=== PATIENT | female | born 1945 | race Caucasian/White ===

== ENCOUNTER 2016-07-05 05:21 | Inpatient (IN) | payer OTHER ==
[2016-06-20 08:42] LABS: HEMATOCRIT 39.9 % (37.0-47.0); HEMOGLOBIN 13.4 gm/dL (12.0-15.0); MCH 31.8 pg (26.0-34.0); MCHC 33.6 g/dL (28.0-37.0); MCV 94.6 fL (80.0-100.0); RBC 4.22 mil/uL (4.20-5.00); RDW 13.4 % (10.5-14.5); WBC 8.4 thou/uL (4.0-11.0)
[2016-06-20 08:48] LABS: URINE BILIRUBIN NEGATIVE (Negative); URINE BLOOD 1+ (Negative); URINE COLOR YELLOW; URINE GLUCOSE-RANDOM* NEGATIVE (Negative); URINE KETONES TRACE (Negative); URINE LEUKOCYTES-REFLEX NEGATIVE (Negative); URINE PROTEIN (DIPSTICK) NEGATIVE (Negative); URINE SPECIFIC GRAVITY >= 1.030 (1.003-1.035); URINE UROBILINOGEN 0.2 E.U./dl (0.2-1.0)
[2016-06-20 08:51] LABS: ALBUMIN 3.4 g/dL (3.4-5.0); CALCIUM 10.4 mg/dL (8.5-10.1); CREATININE 0.8 mg/dL (0.6-1.0); POTASSIUM 4.2 mmol/L (3.5-5.1)
[2016-06-20 09:18] LABS: CASTS None Seen /LPF (None Seen); SQUAMOUS 4-10 Moderate /LPF (0-3)
[2016-06-20 09:19] LABS: CALCIUM OXALATE 4-10 Moderate /LPF (None Seen); URINE RBC 0-2 Rare /HPF (0-2); URINE WBC-REFLEX 0-5 Rare /HPF (0-5)
[2016-07-05] VITALS (7 sets, daily range): BP systolic 113–149; BP diastolic 66–83
[~2016-07-05] VITALS: Ht 160 cm; Wt 93.3 kg
--- NOTE | ~2016-07-05 | H ---
[facility] [address] [address] HISTORY AND PHYSICAL Name: TAMI BETANCURCY CHERIE Room #: 543-P ADM IN M.R.#: [id number] Admission: 07/05/16 Attend Phys: Henok Zavala MD Discharge: Date of : 49 Report #: [id number] THIS REPORT FOR: //name// For History and Physical, please see office documentation/handwritten note in the patient's medical record. By: 1150 Henok Zavala MD /
--- NOTE | ~2016-07-05 | O ---
[facility] [place] [address] [place] [address] OPERATIVE REPORT Name: VIOLA BETANCUR Room #: 543-P ADM IN M.R.#: [id number] Admission: 07/05/16 Attend Phys: Henok Zavala MD Discharge: Date of : 49 Report #: [id number] THIS REPORT FOR: //name// CC: Aidan Rabago Terrymarti Zavala DATE OF SERVICE: 07/05/2016 PREOPERATIVE DIAGNOSES: 1. Right knee degenerative joint disease, severe. 2. Obesity, body mass index of 33.18. POSTOPERATIVE DIAGNOSES: 1. Right knee degenerative joint disease, severe. 2. Obesity, body mass index of 33.18. PROCEDURE: Right total knee arthroplasty. SURGEON: Henok Zavala MD. ZONE MAINTENANCE TECHNICIAN: Adrian Tucker, nurse practitioner. INDICATIONS FOR ZONE MAINTENANCE TECHNICIAN: During the course of operation, extensive manipulation, retraction, and limb positioning was required. This was afforded to me by my ambulance assistant. ANESTHETIC: General. INDICATIONS: See hospital H and P. IMPLANTS UTILIZED: We used a DePuy PFC knee system. We used a cruciate retaining femoral component size 4 narrow. We used a size 3 tibial tray with a 12.5 mm insert and a 38 mm oval dome patella. DESCRIPTION OF PROCEDURE: After adequate general anesthesia had been obtained, the patient's right lower extremity was prepped and draped in the usual meticulous sterile fashion. Limb was exsanguinated with gravity. Tourniquet was inflated to 350 torr. An anterior midline incision was made. We did incorporate a previous incision distally in her knee, which resulted in a slight medial translation of the incision from typical midline incision. Subq was divided sharply. Hemostasis was obtained with electrocautery. Medial parapatellar incision was made. Infrapatellar fat pad excised. Medial release performed. A drill was used to drill the distal femur. This hole was enlarged, irrigated, suctioned, and the intramedullary guide placed the full length of the [facility] [address] [place] [address] OPERATIVE REPORT Name: GYPSYVIOLA [facility] Room #: 543-P ADM IN M.R.#: [id number] Admission: 07/05/16 Attend Phys: Henok Zavala MD Discharge: Date of : 49 Report #: [id number] femur. Distal femoral cutting guide pinned to appropriate height. We did set the valgus angle at 7, which matched the patient's anatomy. We then made the distal femoral cut. The measurement device determined size 4 as appropriate size for this patient, 4 narrow was seemed to be the appropriate one to fit her anatomy. We marked the distal femur and impacted the cutting guide into place, and the anterior, posterior and chamfer cuts were made. Rongeur was used to remove additional osteophytes. At this time, the ACL was transected, tibia translated anteriorly and menisci were excised. Drill was used to drill the central portion of the tibia. This hole was enlarged, irrigated, and suctioned and the intramedullary guide placed the full length of the tibia. Proximal tibial cutting guide placed at appropriate height. Proximal tibial cut was made, 3 tray gave us the best coverage on the tibia. We placed the trial components in position. With 12.5 spacer, she had the best flexion and extension gap. Patella tracked normally. At this time, the patella was measured, cutting guide clamped into place. Patellar cut was made. The 38 template gave us the best coverage. Pedicles were drilled, trial components were put in position. It tracked normally. At this time, the knee was taken through several cycles of flexion and extension. Tibial tray rotation was marked, distal femur drilled. Trial components were removed. The knee was irrigated with both pulse lavage and antibiotic irrigation. Bone plugs were fashioned and then placed in the proximal tibia and distal femur. The cement was vacuum mixed, and when it reached the appropriate consistency, the knee was thoroughly dried. The tibial tray was cemented into place and excess cement was removed. The spacer was impacted in to place. The femur impacted in to place, and the knee was taken out to 30 degrees of flexion with uniform compression placed across the components. Patellar button was then cemented into place, and again excess cement was removed. The drains were placed superolaterally both deep and superficial. The retinacular layer closed with combination of an interrupted [id number]-xe-awwgs #1 Vicryl, as well as running #1 Tevdek. SubQ was closed with 2-0 Monocryl in layers due to the patient's size, which took additional time. Skin closed with josette. Sterile compressive dressing applied. Tourniquet was then deflated. <ELECTRONICALLY SIGNED> By: Henok Zavala MD 07/05/16 1131 0836 1031 Henok Zavala MD /nt
[~2016-07-05 05:21] MED LIST: ALTACE5 M1 PO; ALTACE5 MG PO; ASPIRIN325 PO; AUGMENTIN 875875 MG PO; CIPROFLOXACIN500 M1 PO; CIPROFLOXACIN500 M3; DOXYCYCLINE 10100 M1 PO; FISH OIL 1,001000 M2 PO; FLAGYL500 MG PO; HYOSCYAMINE0.125 MG PO; LANSOPRAZOLE30 MG PO; LEVOTHYROXINE 0.1 MG PO; LIPITOR10 MG PO; NITROGLYCERIN0.4 MG SL; NORCO 5-325 TA1 EACH PO; OCUVITE TABLET1 EAC1 PO; SYNTHROID112 MCG PO; TRAMADOL 50 MG50 MG PO; VITAMIN D1000 UNI1 PO; WELLBUTRIN SR150 MG PO
[2016-07-06 00:49] VITALS: BP 114/69
[2016-07-06 04:30] VITALS: BP 122/62
[2016-07-06 07:07] LABS: HEMATOCRIT 32.9 % (37.0-47.0); MCH 31.4 pg (26.0-34.0); MCHC 33.5 g/dL (28.0-37.0); MCV 93.7 fL (80.0-100.0); RBC 3.51 mil/uL (4.20-5.00); RDW 13.1 % (10.5-14.5); WBC 12.8 thou/uL (4.0-11.0)
[2016-07-06 07:25] LABS: ALBUMIN 2.9 g/dL (3.4-5.0); CALCIUM 9.3 mg/dL (8.5-10.1); CREATININE 0.8 mg/dL (0.6-1.0); POTASSIUM 3.8 mmol/L (3.5-5.1); TOTAL BILIRUBIN 0.5 mg/dL (<0.1-1.0); TOTAL PROTEIN 6.1 g/dL (6.4-8.2)
[2016-07-06 07:28] VITALS: BP 114/65
[2016-07-06 16:22] VITALS: BP 118/45
[2016-07-06 21:04] VITALS: BP 124/64
[2016-07-07] MEDS ORDERED: XARELTO10 MG PO (07:00)
[2016-07-07] MEDS ORDERED: PERCOCET 10-321 EACH PO (07:00)
[2016-07-07 07:30] VITALS: BP 129/80
[2016-07-07 07:51] LABS: HEMOGLOBIN 10.7 gm/dL (12.0-15.0); MANUAL DIFF YES; MCH 32.5 pg (26.0-34.0); MCHC 34.5 g/dL (28.0-37.0); MCV 94.1 fL (80.0-100.0); PLATELET COUNT 245 thou/uL (150-400); RBC 3.29 mil/uL (4.20-5.00); RDW 13.1 % (10.5-14.5); WBC 10.4 thou/uL (4.0-11.0)
[2016-07-07 07:59] LABS: CALCIUM 9.1 mg/dL (8.5-10.1); CREATININE 0.9 mg/dL (0.6-1.0); POTASSIUM 4.1 mmol/L (3.5-5.1)
[2016-07-07 09:15] LABS: ABSOLUTE NEUTROPHILS 7.2 thou/uL (1.4-8.2); PLATELET ESTIMATE NORMAL; TOTAL CELL COUNT 100
[2016-07-07 15:47] VITALS: BP 100/65
[2016-07-07 20:15] VITALS: BP 143/103
[2016-07-08] VITALS (7 sets, daily range): BP systolic 112–116; BP diastolic 65–85
[2016-07-08 05:49] LABS: HEMATOCRIT 30.4 % (37.0-47.0); HEMOGLOBIN 10.4 gm/dL (12.0-15.0); PLATELET COUNT 274 thou/uL (150-400); RBC 3.24 mil/uL (4.20-5.00); RDW 12.8 % (10.5-14.5); WBC 10.8 thou/uL (4.0-11.0)
[2016-07-08 05:55] LABS: MANUAL DIFF YES
[2016-07-08 08:45] LABS: ABSOLUTE NEUTROPHILS 7.7 thou/uL (1.4-8.2); TOTAL CELL COUNT 100
[2016-07-08 13:32] LABS: URINE BILIRUBIN NEGATIVE (Negative); URINE BLOOD 3+ (Negative); URINE COLOR YELLOW; URINE GLUCOSE-RANDOM* NEGATIVE (Negative); URINE KETONES TRACE (Negative); URINE LEUKOCYTES-REFLEX NEGATIVE (Negative); URINE PROTEIN (DIPSTICK) NEGATIVE (Negative); URINE SPECIFIC GRAVITY 1.015 (1.003-1.035); URINE UROBILINOGEN 0.2 E.U./dl (0.2-1.0)
[2016-07-08 13:44] LABS: AMORPHOUS URATES Many /LPF (None Seen); CASTS None Seen /LPF (None Seen); SQUAMOUS None Seen /LPF (0-3); URINE RBC 3-10 Few /HPF (0-2)
[2016-07-08 13:45] LABS: URINE WBC-REFLEX None Seen /HPF (0-5)
[2016-07-09 04:06] LABS: HEMATOCRIT 29.3 % (37.0-47.0); HEMOGLOBIN 10.1 gm/dL (12.0-15.0); MCH 32.5 pg (26.0-34.0); MCHC 34.6 g/dL (28.0-37.0); MCV 93.8 fL (80.0-100.0); PLATELET COUNT 310 thou/uL (150-400); RBC 3.12 mil/uL (4.20-5.00); RDW 13.1 % (10.5-14.5); WBC 10.9 thou/uL (4.0-11.0)
[2016-07-09 04:18] VITALS: BP 125/54
[2016-07-09 04:19] LABS: MANUAL DIFF YES
[2016-07-09 04:23] LABS: CALCIUM 9.1 mg/dL (8.5-10.1); CREATININE 0.8 mg/dL (0.6-1.0); POTASSIUM 3.5 mmol/L (3.5-5.1)
[2016-07-09 07:24] LABS: ABSOLUTE NEUTROPHILS 6.5 thou/uL (1.4-8.2); LARGE PLATELETS FEW; TOTAL CELL COUNT 100
[2016-07-09 07:57] VITALS: BP 136/73
[2016-07-09] MEDS ORDERED: HYDROCODONE-APA1 TA1 PO (14:01)
[2016-07-09] MEDS ORDERED: COLACE 100 MG100 MG PO (14:01)
== END 2016-07-09 14:45 | disposition home health service (06) | DRG 470 ==
LOC: TBA 05:21 → 5S 05:21 → PRE 08:01 → 5S 10:22 → PRE 13:28 → 4N 07-07 15:14
PROVIDERS: Internal Medicine; Nurse Practitioner; Orthopaedic Surgery; Physician Assistant Surgical
PROC: 0SRC0J9 Replacement of Right Knee Joint with Synthetic Substitute, Cemented, Open Approach (ICD-10-PCS; principal; 2016-07-05)
DX: M17.11 Unilateral primary osteoarthritis, right knee (principal); K57.92 Diverticulitis of intestine, part unspecified, without perforation or abscess without bleeding; E66.9 Obesity, unspecified; I10 Essential (primary) hypertension; E78.5 Hyperlipidemia, unspecified; F32.9 Major depressive disorder, single episode, unspecified; I25.10 Atherosclerotic heart disease of native coronary artery without angina pectoris; K21.9 Gastro-esophageal reflux disease without esophagitis; C44.90 Unspecified malignant neoplasm of skin, unspecified; L53.9 Erythematous condition, unspecified; G47.30 Sleep apnea, unspecified; Z90.710 Acquired absence of both cervix and uterus; Z87.891 Personal history of nicotine dependence; Z88.8 Allergy status to other drugs, medicaments and biological substances; Z68.33 Body mass index [BMI] 33.0-33.9, adult; Z95.1 Presence of aortocoronary bypass graft
CPT/HCPCS: 10785; 10790; 50010; 50101; 50415; 50954; 51130; 51225; 51320; 51412; 51771; 52001; 52282; 53000; 53078; 53364; 56525; 56527; 62110; 62900; 70005

== ENCOUNTER → 2016-08-03 | Outpatient (CLI) | payer OTHER ==
[~2016-08-03] MED LIST changes: +COLACE 100 MG100 MG PO; +HYDROCODONE-APA1 TA1 PO; +PERCOCET 10-321 EACH PO; +XARELTO10 MG PO
== END ==
LOC: CAT 07:23
DX: R91.1 Solitary pulmonary nodule (principal)

== ENCOUNTER → 2017-01-11 | Outpatient (CLI) | payer OTHER | LOC: MRI 09:32 | DX: S83.282A Other tear of lateral meniscus, current injury, left knee, initial encounter (principal); X58.XXXA Exposure to other specified factors, initial encounter; Y93.89 Activity, other specified; Y92.89 Other specified places as the place of occurrence of the external cause; Y99.8 Other external cause status ==

== ENCOUNTER → 2017-05-16 | Outpatient (CLI) | payer OTHER | LOC: RAD 08:16 | DX: Z12.31 Encounter for screening mammogram for malignant neoplasm of breast (principal) ==

== ENCOUNTER → 2018-05-17 | Outpatient (CLI) | payer OTHER | LOC: RAD 03:01 | DX: Z12.31 Encounter for screening mammogram for malignant neoplasm of breast (principal) ==

== ENCOUNTER → 2018-05-29 | Outpatient (CLI) | payer OTHER | LOC: ULTRA 01:26 | DX: N63.23 Unspecified lump in the left breast, lower outer quadrant (principal) ==

== ENCOUNTER 2018-06-30 14:58 | Emergency (ER) | payer OTHER ==
[~2018-06-30] VITALS: Ht 160 cm; Wt 88.5 kg
[2018-06-30 15:51] LABS: ABSOLUTE NEUTROPHILS 8.6 thou/uL (1.4-8.2); BASOPHILS 0.3 % (0.0-2.0); EOSINOPHILS 0.5 % (0.0-3.0); HEMATOCRIT 38.6 % (37.0-47.0); HEMOGLOBIN 12.6 gm/dL (12.0-15.0); LYMPHOCYTES 9.9 % (24.0-44.0); MCH 29.3 pg (26.0-34.0); MCHC 32.7 g/dL (28.0-37.0); MCV 89.7 fL (80.0-100.0); MONOCYTES 4.9 % (1.0-8.0); PLATELET COUNT 335 thou/uL (150-400); POLYS 84.4 % (36.0-66.0); RDW 15.2 % (10.5-14.5); WBC 10.2 thou/uL (4.0-11.0)
[2018-06-30 15:54] LABS: ANION GAP 11 mmol/L (7-16); BUN 16 mg/dL (7-18); CALCIUM 10.9 mg/dL (8.5-10.1); CHLORIDE 104 mmol/L (98-107); CO2 25 mmol/L (21-32); CREATININE 0.8 mg/dL (0.6-1.0); GLUCOSE 138 mg/dL (74-106); POTASSIUM 4.1 mmol/L (3.5-5.1); SODIUM 140 mmol/L (136-145)
[2018-06-30 16:05] LABS: ALBUMIN 3.5 g/dL (3.4-5.0); LIPASE 116 U/L (73-393); SGOT 28 U/L (15-37); SGPT 24 U/L (30-65); TOTAL BILIRUBIN 0.4 mg/dL (<0.1-1.0); TOTAL PROTEIN 7.3 g/dL (6.4-8.2); TROPONIN-I <0.06 ng/mL (<0.06)
[2018-06-30 17:05] LABS: URINE BILIRUBIN NEGATIVE (Negative); URINE BLOOD TRACE (Negative); URINE CLARITY CLOUDY; URINE COLOR YELLOW; URINE GLUCOSE-RANDOM* NEGATIVE (Negative); URINE KETONES 1+ (Negative); URINE LEUKOCYTES-REFLEX NEGATIVE (Negative); URINE NITRITE-REFLEX NEGATIVE (Negative); URINE PROTEIN (DIPSTICK) NEGATIVE (Negative); URINE SPECIFIC GRAVITY 1.015 (1.005-1.035); URINE UROBILINOGEN 0.2 E.U./dl (0.2-1.0)
[2018-06-30] MEDS ORDERED: ZOFRAN ODT4 MG PO (17:24)
[2018-06-30 17:29] VITALS: BP 122/71
--- NOTE | 2018-07-01 10:32 | EKG ---
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1945 Requested By: Rashad Mercado Order Number: [id number] MD: Nehemiah Gonzalez Measurements Intervals [place] Rate: 68 P: 27 DE: 194 QRS: 10 QRSD: 113 T: 40 QT: 387 QTc: 412 Interpretive Statements Sinus rhythm Borderline intraventricular conduction delay Nonspecific T abnormalities, lateral leads Compared to ECG 10/10/2013 10:11:42 T-wave abnormality now present Left ventricular hypertrophy no longer present Early repolarization no longer present Electronically Signed On 07-01-2018 10:32:46 CDT by Nehemiah Gonzalez [email or web address] ��������������������������������������������� <ELECTRONICALLY SIGNED> ���������������������������������������� By: Nehemiah Gonzalez MD ��������������������������������������������� 07/01/18 1032 1505 1505 Nehemiah Gonzalez MD /NINO
--- NOTE | 2018-07-01 10:35 | EKG ---
[place] [address] [facility] [place] [address] ELECTROCARDIOGRAM REPORT Name: VIOLA BETANCUR CHERIE 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1945 Requested By: Rashad Mercado Order Number: [id number] MD: Nehemiah Gonzalez Measurements Intervals [place] Rate: 71 P: 32 GA: 159 QRS: 10 QRSD: 102 T: 29 QT: 396 QTc: 431 Interpretive Statements Sinus rhythm Borderline T wave abnormalities Compared to ECG 10/10/2013 10:11:42 no significant change Electronically Signed On 07-01-2018 10:35:08 CDT by Nehemiah Gonzalez [email or web address] ��������������������������������������������� <ELECTRONICALLY SIGNED> ���������������������������������������� By: Nehemiah Gonzalez MD ��������������������������������������������� 07/01/18 1035 1713 1713 Nehemiah Gonzalez MD /NINO
== END 2018-06-30 17:40 | disposition home or self-care (01) ==
LOC: ER 14:58
PROVIDERS: Emergency Medicine
DX: R55 Syncope and collapse (principal); R10.32 Left lower quadrant pain; R10.31 Right lower quadrant pain; R11.10 Vomiting, unspecified; E03.9 Hypothyroidism, unspecified; E78.5 Hyperlipidemia, unspecified; K21.9 Gastro-esophageal reflux disease without esophagitis; F41.9 Anxiety disorder, unspecified; G47.30 Sleep apnea, unspecified; F32.9 Major depressive disorder, single episode, unspecified; Z87.891 Personal history of nicotine dependence; Z91.048 Other nonmedicinal substance allergy status; Z90.13 Acquired absence of bilateral breasts and nipples; Z90.710 Acquired absence of both cervix and uterus; Z85.828 Personal history of other malignant neoplasm of skin; Z95.5 Presence of coronary angioplasty implant and graft; Z90.49 Acquired absence of other specified parts of digestive tract

== ENCOUNTER → 2018-11-27 | Outpatient (CLI) | payer OTHER ==
[~2018-11-27] MED LIST changes: +ZOFRAN ODT4 MG PO
== END ==
LOC: RAD 00:54 → ULTRA 00:54 → RAD 09:55
DX: N60.02 Solitary cyst of left breast (principal)

== ENCOUNTER → 2018-12-12 | Outpatient (CLI) | payer OTHER ==
[~2018-12-12] MED LIST changes: -LEVOTHYROXINE 0.1 MG PO; +PANTOPRAZOLE SO40 M1 PO; +SYNTHROID100 MC1 PO; +SYSTANE 0.3-0.415 ML OPHTHALMIC
--- NOTE | 2018-12-17 13:46 | PATH ---
[facility] [address] [place] [address] PATHOLOGY RPT PROCEDURE Name: MECCA BETANCUR CHERIE Room #: REG MAIRA MHarmeet.#: [id number] Admission: 12/12/18 Date of : 49 Discharge: Report #: [id number] Path Case #: [id number] [facility] Accession Number: [id number] . 01 Material submitted: . breast - LEFT LATERAL BREAST NODULE. Modifiers: left, lateral . 01 Clinical history: . Left breast nodule . 02 Diagnosis: "Left lateral breast nodule", stereotactic guided needle biopsy: - Consistent with intraductal papilloma, measuring 0.5 cm on the slide (see comment). (CLW:pit; 12/14/2018) QTP 12/14/2018 1433 Local . 02 Comment: Properly controlled immunohistochemical stains are performed. . Block A3 CK5/6 - Mosaic staining, no lack of staining; Smooth muscle myosin - Intact myoepithelial cells; P63 - Intact myoepithelial cells. . No cytologic atypia or malignancy is seen within the material sampled. Of note, this is a small portion of a larger lesion and may not be entirely front office representative. Clinical and radiographic correlation is required. The case is co-reviewed with Dr. Shelby Cook. The case is discussed with Dr. Tim Jorge on 12/14/2018 at 1:15 PM. (CLW:pit; 12/14/2018) . 02 Electronically signed: . Manuela Rios MD, Pathologist NPI- [id number] . 01 Gross description: . Received in formalin labeled "Mecca Betancur, left," and additionally labeled on the requisition as "lateral breast," are multiple needle cores of yellow-walker fibrofatty tissue measuring 2.9 x 3.7 x 0.6 cm in aggregate dimensions. The tissue is submitted in its entirety in cassettes A1 through A3. The cold ischemic time is 5 minutes. The total formalin fixation time is 13 hours and 29 minutes. (TSD; 12/12/2018) TOB/TOB 12/12/2018 1838 Local . 02 Pathologist provided ICD-10: [address] [address] PATHOLOGY RPT PROCEDURE Name: MECCA BETANCUR CHERIE Room #: REG Ramona Gutierrez#: [id number] Admission: 12/12/18 Date of : 49 Discharge: Report #: [id number] Path Case #: [id number] D24.2 . 02 CPT . 060242, G88472, B61530 Specimen Comment: A courtesy copy of this report has been sent to Specimen Comment: [phone], . Specimen Comment: Report sent to / DR BARRIENTOS Performed at: [address], [place], [place] [id number] MD Garrett Milton MD Phone: [phone] Performed at: [address] [id number] MD Shelby Cook MD Phone: [phone]
== END | disposition home or self-care (01) ==
LOC: BC 08:05
DX: N63.20 Unspecified lump in the left breast, unspecified quadrant (principal); D24.2 Benign neoplasm of left breast; E78.5 Hyperlipidemia, unspecified; E03.9 Hypothyroidism, unspecified; F41.9 Anxiety disorder, unspecified; G47.30 Sleep apnea, unspecified; F32.9 Major depressive disorder, single episode, unspecified; K21.9 Gastro-esophageal reflux disease without esophagitis; Z90.49 Acquired absence of other specified parts of digestive tract; Z79.899 Other long term (current) drug therapy; Z85.828 Personal history of other malignant neoplasm of skin; Z79.82 Long term (current) use of aspirin; Z95.1 Presence of aortocoronary bypass graft; Z90.710 Acquired absence of both cervix and uterus; Z98.890 Other specified postprocedural states; Z87.19 Personal history of other diseases of the digestive system; Z87.891 Personal history of nicotine dependence

== ENCOUNTER 2019-01-18 07:55 | Day surgery (SDC) | payer OTHER ==
[~2019-01-18] VITALS: Ht 160 cm; Wt 88.9 kg
--- NOTE | ~2019-01-18 | O ---
[facility] [place] [address] [address] [place] [address] OPERATIVE REPORT Name: VIOLA BETANCUR Room #: 150-5 [facility] M.R.#: [id number] Admission: 01/18/19 Attend Phys: Ganesh Milligan MD Discharge: Date of : 49 Report #: [id number] THIS REPORT FOR: //name// CC: Aidan Milligan DATE OF SERVICE: 01/18/2019 PREOPERATIVE DIAGNOSIS: Papilloma, left breast, recent needle biopsy. POSTOPERATIVE DIAGNOSIS: Papilloma, left breast, recent needle biopsy, final pathology pending. OPERATION: Left breast segmental resection with wire localization and specimen x-ray. SURGEON: Ganesh Milligan MD. ANESTHESIA: General. DESCRIPTION OF PROCEDURE: Under satisfactory general anesthesia and with the patient in the supine position, the left breast was widely prepped with ChloraPrep solution. Sterile drapes were applied. The radiologist had already performed wire localization for the biopsy clip in the left breast from the recent needle biopsy. The patient initially wondered about IV sedation and local anesthesia; however, she changed her mind and requested a general anesthesia from the anesthesiologist. A circumareolar incision was made in the left breast at the areolar edge. Dissection was carried down through the skin and subcutaneous tissue and then laterally to the guidewire, which was delivered into the incision. A segmental resection was performed in order to remove the breast tissue around the shaft and tip of the guidewire as recommended by the radiologist. The specimen was marked with sutures for orientation purposes. Specimen x-ray confirmed removal of the clip and the guidewire and the biopsy site, together with normal appearing breast tissue all around. The radiologist was happy with the x-ray and so was I. The specimen was handed directly to the pathologist. Palpation from within the breast revealed no other suspicious areas. Hemostasis was obtained using electrocautery and the breast tissue was reapproximated using interrupted 3-0 Vicryl. The skin was approximated using running 4-0 subcuticular PDS. Sterile dressings were applied and the patient [facility] [address] [place] [address] OPERATIVE REPORT Name: VIOLA BETANCUR [facility] Room #: 150-5 [facility]..#: [id number] Admission: 01/18/19 Attend Phys: Ganesh Milligan MD Discharge: Date of : 49 Report #: [id number] was taken to recovery in satisfactory condition. Estimated blood loss was less than 10 mL. By: 1316 1326 Ganesh Milligan MD /nt
[2019-01-18 08:33] LABS: HEMATOCRIT 37.6 % (37.0-47.0); HEMOGLOBIN 12.1 gm/dL (12.0-15.0); MCH 29.5 pg (26.0-34.0); MCHC 32.1 g/dL (28.0-37.0); RBC 4.09 mil/uL (4.20-5.00); WBC 6.5 thou/uL (4.0-11.0)
[2019-01-18 08:40] LABS: CALCIUM 10.6 mg/dL (8.5-10.1); CREATININE 0.8 mg/dL (0.6-1.0)
[2019-01-18 08:47] LABS: ALBUMIN 3.3 g/dL (3.4-5.0); TOTAL BILIRUBIN 0.4 mg/dL (<0.1-1.0)
--- NOTE | 2019-01-18 12:48 | NUR ---
THIS NON DESTRUCTIVE TESTING TECHNICIAN COMPLETED A PRE-SURGERY VISIT WITTH PATIENT. HER SON AND DAUGHTER WERE PRESENT. WE DID LIFE REVIEW AND DISCUSSED WHAT A BLESING IT WAS TO HAVE HER CHILDREN PRESENT. WE CONCLUDED IN PRAYER ASKING GOD'S BLESSING ON THE PHYSICIAN, THE PROCEDURE AND FOR A SPEEDY RECOVERY. .
--- NOTE | 2019-01-22 17:06 | PATH ---
[facility] [address] [place] [address] PATHOLOGY RPT PROCEDURE Name: MECCA BETANCUR CHERIE Room #: DEP [facility] M.R.#: [id number] Admission: 01/18/19 Date of : 49 Discharge: 01/18/19 Report #: [id number] Path Case #: [id number] LCA Accession Number: [id number] . 01 Material submitted: . breast - LEFT BREAST SEGMENTAL RESECTION LONG SUTURE LAT, SHORT SUTURE SUPERIFICAL. Modifiers: left . 01 Clinical history: . Papilloma left breast, recent needle biopsy. . 02 Diagnosis: Breast, left breast, segmental resection: - Biopsy site changes present; no residual papilloma identified. - Background breast tissue showing proliferative fibrocystic changes including adenosis, columnar cell hyperplasia as well as apocrine metaplasia. - Negative for atypia or malignancy. (IUV:pit; 01/21/2019) QTP 01/21/2019 1500 Local . 02 Electronically signed: . Shelby Cook MD, Pathologist NPI- [id number] . 01 Gross description: . Received in formalin labeled "Mecca Betancur, left breast segmental resection long suture lateral short suture superficial" is an oriented breast lumpectomy specimen weighing 32 g and measuring 5.7 cm from lateral to medial, 5.5 cm from anterior to posterior, 2.9 cm from superior to inferior. The specimen is inked as follows: superior-red, inferior-blue, anterior-green, posterior-black, lateral-orange, medial-yellow. The specimen is sectioned from lateral to medial into 12 slices. Within slices 6-9 is a pink-solano firm mass measuring 2.0 x 1.3 x 0.5 cm, with surrounding yellow-solano possible fat necrosis measuring 2.0 x 1.7 x 1.2 cm. The mass measures to the margins as follows: 0.7 cm to superior, 0.2 cm to inferior, 2.1 cm to anterior, 0.5 cm to posterior, 2.5 cm to lateral, and 2.0 cm to medial. A biopsy clip is not grossly identified. The uninvolved breast parenchyma is yellow and lobulated with focal hemorrhage in the lateral slices. The specimen is submitted entirely as follows: A1 slice 1, lateral margin, perpendicular sections A2 slice 2 A3-A4 slice 3 A5-A6 slice 4 A7-A9 slice 5 A10-A12 slice 6 A13-A15 slice 7 [place] [address] PATHOLOGY RPT PROCEDURE Name: MECCA BETANCUR CHERIE Room #: DEP [facility] Matt#: [id number] Admission: 01/18/19 Date of : 49 Discharge: 01/18/19 Report #: [id number] Path Case #: [id number] A16-A18 slice 8 A19-A21 slice 9 A22-A23 slice 10 A24-A25 slice 11 A26-A27 slice 12, medial margin, perpendicular sections The specimen is removed from the patient at 1251 and placed in formalin at 1314 on January 18, 2019. The specimen is removed from formalin at 1850 on January 20, 2019. ([facility]; 01/20/2019) [facility] 01/20/2019 0925 Local . 02 Pathologist provided ICD-10: N60.12, N60.22, N62, N60.82 . 02 CPT . 332623 Specimen Comment: A courtesy copy of this report has been sent to [phone] Specimen Comment: [phone] Specimen Comment: Report sent to / ILIANA Performed at: [address] [facility] [address], [place], [place] [id number] MD Garrett Milton MD Phone: [phone] Performed at: [address] [facility] [address] [id number] MD Shelby Cook MD Phone: [phone]
== END 2019-01-18 14:40 | disposition home or self-care (01) ==
LOC: OR 07:55 → TBA 07:56 → OR 08:08 → RAD 09:25 → EDSTATUS 09:26 → OR 09:27
PROVIDERS: Specialist
DX: N60.12 Diffuse cystic mastopathy of left breast (principal); N60.22 Fibroadenosis of left breast; N62 Hypertrophy of breast; N60.82 Other benign mammary dysplasias of left breast; I10 Essential (primary) hypertension; E78.00 Pure hypercholesterolemia, unspecified; E03.9 Hypothyroidism, unspecified; E78.5 Hyperlipidemia, unspecified; G47.30 Sleep apnea, unspecified; K21.9 Gastro-esophageal reflux disease without esophagitis; Z98.890 Other specified postprocedural states; Z79.899 Other long term (current) drug therapy; Z85.828 Personal history of other malignant neoplasm of skin; Z95.1 Presence of aortocoronary bypass graft; Z87.891 Personal history of nicotine dependence; Z90.710 Acquired absence of both cervix and uterus; Z90.49 Acquired absence of other specified parts of digestive tract; Z87.19 Personal history of other diseases of the digestive system; Z96.653 Presence of artificial knee joint, bilateral; Z79.82 Long term (current) use of aspirin
CPT/HCPCS: 50010; 50101; 50386; 50403; 56524; 56526; 62110; 62900; 70005

== ENCOUNTER → 2019-07-30 | Outpatient (CLI) | payer OTHER | LOC: RAD 07:30 | DX: D24.9 Benign neoplasm of unspecified breast (principal); N64.89 Other specified disorders of breast ==

== ENCOUNTER → 2019-07-31 | Outpatient (CLI) | payer OTHER | LOC: SJCVCIMAG 09:14 | DX: I25.10 Atherosclerotic heart disease of native coronary artery without angina pectoris (principal); R07.9 Chest pain, unspecified; I10 Essential (primary) hypertension; E78.5 Hyperlipidemia, unspecified; G47.33 Obstructive sleep apnea (adult) (pediatric); Z95.1 Presence of aortocoronary bypass graft ==

== ENCOUNTER → 2019-08-13 | Outpatient (CLI) | payer OTHER | LOC: SJCVCIMAG 11:35 | DX: R94.31 Abnormal electrocardiogram [ECG] [EKG] (principal); I48.91 Unspecified atrial fibrillation; I10 Essential (primary) hypertension; I25.10 Atherosclerotic heart disease of native coronary artery without angina pectoris; I65.23 Occlusion and stenosis of bilateral carotid arteries; E78.00 Pure hypercholesterolemia, unspecified; R00.2 Palpitations ==

== ENCOUNTER → 2019-09-10 | Outpatient (CLI) | payer OTHER | LOC: SJCVC 12:34 | PROVIDERS: ATTEND Internal Medicine Cardiovascular Disease | DX: R94.31 Abnormal electrocardiogram [ECG] [EKG] (principal); I48.19 Other persistent atrial fibrillation; I10 Essential (primary) hypertension; I65.23 Occlusion and stenosis of bilateral carotid arteries; I25.10 Atherosclerotic heart disease of native coronary artery without angina pectoris; K21.9 Gastro-esophageal reflux disease without esophagitis; E03.9 Hypothyroidism, unspecified; Z90.49 Acquired absence of other specified parts of digestive tract; Z79.899 Other long term (current) drug therapy; Z87.891 Personal history of nicotine dependence ==

== ENCOUNTER → 2019-09-19 | Outpatient (CLI) | payer OTHER ==
[~2019-09-19] VITALS: Ht 162.6 cm; Wt 89.8 kg
--- NOTE | 2019-09-19 09:35 | TEE ---
[facility] [address] [address] TRANSESOPHAGEAL ECHOCARDIOGRAM Name: VIOLA BETANCUR Room #: REG MAIRA Vu.#: [id number] Admission: 09/19/19 Attend Phys: Andrews Murray MD, Discharge: Date of : 49 Report #: [id number] THIS REPORT FOR: cc: Aidan Tong MD, Bernard O. MD Lundgren, Craig H. MD [facility] ~ APPROVED REPORT Study performed: 09/19/2019 08:32:55 EXAM: Transesophageal Echocardiogram with Doppler and Cardioversion Patient Location: Out-Patient Status: routine BSA: 1.93 HR: 82 bpm BP: 139/83 mmHg Rhythm: Atrial Fibrillation Other Information Study Quality: Good Indications Atrial Fibrillation Cardioversion. Hx: CABG Procedure After obtaining informed consent, patient underwent transesophageal echo in the [employer]. Type of Sedation : Conscious Sedation Sedation was administered by Kimber Colorado RN. Sedation was achieved intravenously with: Versed (4) Fentanyl (100) Transesophageal probe was inserted and advanced into esophagus without difficulty by Andrews Murray MD. Echo enhancement indication: R/O Septal defect. Echo enhancement agent administered: Agitated Saline The YA was performed with complications. Synchronized Cardioversion acheived with 120 Joules after 1 attempt(s). Rhythm following Synchronized Cardioversion: Normal Sinus Rhythm Throughout the procedure, the blood pressure, pulse oximetry, cardiac rhythm, and rate were monitored. [facility] [address] [place] [address] TRANSESOPHAGEAL ECHOCARDIOGRAM Name: VIOLA BETANCUR Room #: REG CL [facility].#: [id number] Admission: 09/19/19 Attend Phys: Andrews Murray, Discharge: Date of : 49 Report #: [id number] The patient tolerated the procedure without adverse effects. Recovery from conscious sedation was uneventful and vital signs were stable. Left Ventricle The left ventricle is normal size. There is normal left ventricular wall thickness. Left ventricular systolic function is at the lower limits of normal LVEF is 45-50%. Right Ventricle The right ventricle is normal size. The right ventricular systolic function is normal. Atria Left atrium is mildly dilated. No thrombus is visualized in the left atrium or appendage. No shunting noted with contrast bubble injection. The right atrium size is normal. Aortic Valve The aortic valve is normal in structure. No aortic regurgitation is present. There is no aortic valvular stenosis. Mitral Valve The mitral valve is normal in structure. Mild mitral regurgitation. No evidence of mitral valve stenosis. Tricuspid Valve The tricuspid valve is normal in structure. Mild-moderate tricuspid regurgitation. Pulmonic Valve The pulmonary valve is normal in structure. Trace pulmonic regurgitation. Great Vessels The aortic root is normal in size. The ascending aorta is normal in size. IVC is normal in size and collapses >50% with inspiration. Pericardium There is no pericardial effusion. <Conclusion> Left ventricular systolic function is at the lower limits of normal LVEF is 45-50%. [facility] [address] [place] [address] TRANSESOPHAGEAL ECHOCARDIOGRAM Name: VIOLA BETANCUR [facility] Room #: REG [facility].#: [id number] Admission: 09/19/19 Attend Phys: Andrews Murray, Discharge: Date of : 49 Report #: [id number] Left atrium is mildly dilated. No thrombus is visualized in the left atrium or appendage. No shunting noted with contrast bubble injection. The aortic valve is normal in structure. No aortic regurgitation is present. The mitral valve is normal in structure. Mild mitral regurgitation. There is no pericardial effusion. Successful cardioversion of atrial fibrillation to sinus rhythm following a single 120 J biphasic synchronized shock. <ELECTRONICALLY SIGNED> By: Andrews Murray MD, FACC 09/19/1933 4 4 Andrews Murray MD, FACC /INF
== END | disposition home or self-care (01) ==
LOC: CATH 06:41
PROVIDERS: ATTEND Internal Medicine
DX: I48.91 Unspecified atrial fibrillation (principal); I08.1 Rheumatic disorders of both mitral and tricuspid valves; I10 Essential (primary) hypertension; E78.5 Hyperlipidemia, unspecified; E03.9 Hypothyroidism, unspecified; G47.30 Sleep apnea, unspecified; K21.9 Gastro-esophageal reflux disease without esophagitis; Z98.890 Other specified postprocedural states; Z79.899 Other long term (current) drug therapy; Z11.59 Encounter for screening for other viral diseases; Z85.828 Personal history of other malignant neoplasm of skin; Z90.710 Acquired absence of both cervix and uterus; Z79.01 Long term (current) use of anticoagulants; Z96.653 Presence of artificial knee joint, bilateral; Z90.49 Acquired absence of other specified parts of digestive tract; Z87.891 Personal history of nicotine dependence; Z79.82 Long term (current) use of aspirin

== ENCOUNTER → 2019-09-30 | Outpatient (CLI) | payer OTHER | LOC: SJCVC 13:05 | PROVIDERS: ATTEND Internal Medicine Cardiovascular Disease | DX: R00.1 Bradycardia, unspecified (principal); R94.31 Abnormal electrocardiogram [ECG] [EKG]; I48.91 Unspecified atrial fibrillation; I10 Essential (primary) hypertension; E78.00 Pure hypercholesterolemia, unspecified; K21.9 Gastro-esophageal reflux disease without esophagitis; E03.9 Hypothyroidism, unspecified; E78.5 Hyperlipidemia, unspecified; I25.810 Atherosclerosis of coronary artery bypass graft(s) without angina pectoris; Z95.1 Presence of aortocoronary bypass graft; Z82.49 Family history of ischemic heart disease and other diseases of the circulatory system; Z79.82 Long term (current) use of aspirin; Z79.899 Other long term (current) drug therapy; Z87.891 Personal history of nicotine dependence ==

== ENCOUNTER → 2019-10-23 | Outpatient (CLI) | payer OTHER | LOC: SJCVC 14:02 | PROVIDERS: ATTEND Internal Medicine Cardiovascular Disease | DX: R94.31 Abnormal electrocardiogram [ECG] [EKG] (principal); I25.810 Atherosclerosis of coronary artery bypass graft(s) without angina pectoris; I48.91 Unspecified atrial fibrillation; E78.00 Pure hypercholesterolemia, unspecified; G47.33 Obstructive sleep apnea (adult) (pediatric); I65.23 Occlusion and stenosis of bilateral carotid arteries; D68.59 Other primary thrombophilia; K21.9 Gastro-esophageal reflux disease without esophagitis; E03.9 Hypothyroidism, unspecified; E78.5 Hyperlipidemia, unspecified; Z95.1 Presence of aortocoronary bypass graft; Z79.899 Other long term (current) drug therapy; Z82.49 Family history of ischemic heart disease and other diseases of the circulatory system; Z87.891 Personal history of nicotine dependence ==

== ENCOUNTER 2020-01-27 18:32 | Inpatient (IN) | payer OTHER ==
[~2020-01-27] VITALS: Ht 160 cm; Wt 90.7 kg
[2020-01-27 18:32] VITALS: BP 115/64
[2020-01-27 19:28] LABS: BE(vivo) -2.1 mmol/L (-2 to +3); HCO3 20.3 mmol/L (22.0-26.0); PCO2 27.9 mmHg (35.0-45.0); PO2 60.9 mmHg (80.0-100.0); pH 7.479 (7.360-7.450); sO2 93.3 % (92.0-98.0)
[2020-01-27 19:48] LABS: ABSOLUTE NEUTROPHILS 4.3 thou/uL (1.4-8.2); BASOPHILS 0.2 % (0.0-2.0); EOSINOPHILS 1.9 % (0.0-3.0); HEMOGLOBIN 11.5 gm/dL (12.0-15.0); LYMPHOCYTES 10.4 % (24.0-44.0); MCH 29.7 pg (26.0-34.0); MCHC 32.9 g/dL (28.0-37.0); MCV 90.2 fL (80.0-100.0); MONOCYTES 9.8 % (1.0-8.0); PLATELET COUNT 457 thou/uL (150-400); POLYS 77.7 % (36.0-66.0); RBC 3.88 mil/uL (4.20-5.00); RDW 14.4 % (10.5-14.5); WBC 5.6 thou/uL (4.0-11.0)
[2020-01-27 19:55] LABS: ANION GAP 11 mmol/L (7-16); BUN 13 mg/dL (7-18); CALCIUM 9.7 mg/dL (8.5-10.1); CHLORIDE 102 mmol/L (98-107); CO2 25 mmol/L (21-32); GLUCOSE 98 mg/dL (74-106); POTASSIUM 3.1 mmol/L (3.5-5.1); SODIUM 138 mmol/L (136-145)
[2020-01-27 20:03] LABS: TROPONIN-I <0.06 ng/mL (<0.06)
[2020-01-27] MEDS ORDERED: ASPIRIN EC81 M1 PO (22:20)
[2020-01-27] MEDS ORDERED: XARELTO20 MG PO (22:21)
[2020-01-27] MEDS ORDERED: OCUVITE TABLET1 EAC1 PO (22:21)
[2020-01-27] MEDS ORDERED: PACERONE200 MG PO (22:21)
[2020-01-27] MEDS ORDERED: LEVSIN0.125 MG PO (22:26)
[2020-01-27] MEDS ORDERED: VITAMIN D325 MC3 PO (22:26)
[2020-01-27 23:17] LABS: URINE BILIRUBIN NEGATIVE (Negative); URINE BLOOD 3+ (Negative); URINE CLARITY SL CLOUDY; URINE COLOR YELLOW; URINE GLUCOSE-RANDOM* NEGATIVE (Negative); URINE KETONES TRACE (Negative); URINE LEUKOCYTES TRACE (Negative); URINE NITRITE POSITIVE (Negative); URINE PROTEIN (DIPSTICK) 1+ (Negative); URINE SPECIFIC GRAVITY 1.015 (1.005-1.035)
[2020-01-27 23:54] LABS: SQUAMOUS 4-10 Moderate /LPF (0-3)
[2020-01-27 23:55] LABS: BACTERIA >30 Many /HPF (None Seen); CASTS None Seen /LPF (None Seen); CRYSTALS None Seen /LPF (None Seen); MUCUS 4-6 Moderate strn/LPF (None Seen); URINE WBC 6-15 Few /HPF (0-5)
[2020-01-28 00:04] LABS: CHOLESTEROL 141 mg/dL (<200); HDL CHOLESTEROL 60 mg/dL (>40); LDL CHOLESTEROL 70 mg/dL (<100); TC:HDL 2.4 Ratio (Not establshd); TRIGLYCERIDE 58 mg/dL (<150); VLDL 12 mg/dL (<40)
[2020-01-28 00:08] LABS: SERUM ASSESSMENT Clear
[2020-01-28 00:32] VITALS: BP 123/76
[2020-01-28 05:00] VITALS: BP 132/59
[2020-01-28 06:56] LABS: HEMATOCRIT 33.8 % (37.0-47.0); MCH 29.4 pg (26.0-34.0); MCHC 32.4 g/dL (28.0-37.0); MCV 90.8 fL (80.0-100.0); RBC 3.73 mil/uL (4.20-5.00); RDW 14.5 % (10.5-14.5); WBC 4.1 thou/uL (4.0-11.0)
[2020-01-28 07:29] LABS: CREATININE 0.8 mg/dL (0.6-1.0)
--- NOTE | 2020-01-28 07:35 | EKG ---
[facility] [place] [address] ELECTROCARDIOGRAM REPORT Name: VIOLA BETANCUR Room #: 170-17 ADM IN M.R.#: [id number] Admission: 01/27/20 Attend Phys: Renetta Stubbs Discharge: Date of : 49 Report #: [id number] THIS REPORT FOR: cc: Aidan Tong MD, Bernard O. MD Lundgren, Craig H. 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 : 1945 Requested By: Migue Patel Order Number: [id number] MD: Andrews Murray Measurements Intervals [place] Rate: 55 P: 55 [place]: 51 QRS: -1 QRSD: 107 T: -6 QT: 419 QTc: 401 Interpretive Statements Sinus bradycardia Nonspecific ST and T wave abnormality Compared to ECG 06/30/2018 17:13:50 QT interval has lengthened Electronically Signed On 01-28-2020 7:35:25 [employer]EIGN STUDENT ADVISER TEACHER by Andrews Murray [email or web address] <ELECTRONICALLY SIGNED> By: Andrews Murray MD, FAC 01/28/20 0735 32 32 Andrews Murray MD, [facility] /EPI
[2020-01-28 09:00] VITALS: BP 136/65
[2020-01-28 12:04] VITALS: BP 130/55
[2020-01-28 16:09] VITALS: BP 142/70
[2020-01-28 20:46] VITALS: BP 104/55
--- NOTE | 2020-01-28 22:32 | NUR ---
UPDATED TYESHA (DAUGHTER IN LAW) WITH PATIENTS PERMISSION ABOUT STATUS
[2020-01-29 00:01] VITALS: BP 117/51
[2020-01-29 04:00] VITALS: BP 120/61
[2020-01-29 05:38] LABS: BASOPHILS 0.8 % (0.0-2.0); EOSINOPHILS 0.7 % (0.0-3.0); HEMATOCRIT 32.9 % (37.0-47.0); HEMOGLOBIN 10.8 gm/dL (12.0-15.0); LYMPHOCYTES 13.7 % (24.0-44.0); MCH 29.6 pg (26.0-34.0); MCHC 32.7 g/dL (28.0-37.0); MCV 90.3 fL (80.0-100.0); PLATELET COUNT 474 thou/uL (150-400); POLYS 72.8 % (36.0-66.0); RBC 3.65 mil/uL (4.20-5.00); RDW 14.8 % (10.5-14.5); WBC 6.9 thou/uL (4.0-11.0)
[2020-01-29 07:30] VITALS: BP 122/64
--- NOTE | 2020-01-29 12:00 | HC ---
[facility] [place] [address] CONSULTATION Name: VIOLA BETANCUR Room #: 170-17 ADM IN M.R.#: [id number] Admission: 01/27/20 Attend Phys: Renetta Stubbs Discharge: Date of : 49 Report #: [id number] THIS REPORT FOR: cc: Aidan Tong MD, Bernard O. MD Barry, Joseph W. MD ~ DATE OF SERVICE: 01/28/2020 INFECTIOUS DISEASE CONSULTATION ATTENDING PHYSICIAN: Renetta Stubbs MD REASON FOR EVALUATION: COVID-19 infection, possible aspiration pneumonitis with complicating bacterial etiology. HISTORY OF PRESENT ILLNESS: Chart reviewed, patient examined. This is a 74-year-old with history of hypertension as well as hypothyroidism, known coronary artery disease, who presented from her home and had tested positive for COVID roughly 2 weeks ago. She noted she had fever and chills, generalized body aches. She, however, noted increasing dyspnea with associated dry cough within the last 48 hours prior to admission. She has had p.o. intake, which has been poor, apparently had some degree of dysgeusia as well. On evaluation, she was found to be hypoxemic with pO2 of 60. Chest x-ray with bilateral infiltrates, they are multifocal, mixed. Lactic acid 1.2. Procalcitonin less than 0.05. Urinalysis was remarkable for 6-15 white cells. Again, coronavirus PCR was positive. Blood cultures have been sterile thus far, empirically dosed with ceftriaxone and azithromycin. She is feeling somewhat better. At this point, she is on supplemental oxygen at 3 liters per nasal cannula. ALLERGIES: None. CURRENT MEDICATIONS: Include rivaroxaban, pantoprazole, bupropion, amiodarone, ceftriaxone, levothyroxine, ipratropium and albuterol inhaler, guaifenesin and azithromycin. PAST MEDICAL HISTORY: Include coronary artery disease with previous stenting and aortocoronary bypass grafting, hypothyroidism, hyperlipidemia, hypertension, ____, obstructive sleep apnea, reflux, history of diverticulitis, multiple orthopedic surgeries, previous appendectomy and hemorrhoidectomy. SOCIAL HISTORY: Former smoker. No illicit drug use. FAMILY HISTORY: Noncontributory. [facility] [address] [place] [address] CONSULTATION Name: VIOLA BETANCUR [facility] Room #: 17017 [facility] IN .R.#: [id number] Admission: 01/27/20 Attend Phys: Renetta Stubbs Discharge: Date of : 49 Report #: [id number] REVIEW OF SYSTEMS: Otherwise, unremarkable. PHYSICAL EXAMINATION: GENERAL: She is alert, in [id number] distress secondary to respiratory difficulties. She has had some difficulty completing sentences, appears somewhat ill, not overtly toxic, undernourished. VITAL SIGNS: Temperature 98, pulse 53, respirations 19, blood pressure 130/55. SKIN: Warm, dry, no rashes. HEENT: Normocephalic. Extraocular muscles intact. Nasal cannula in place. NECK: Supple. LUNGS: Bilateral crackles at least longterm up. HEART: Regular. Borderline bradycardic. I do not appreciate murmur. ABDOMEN: Soft, nontender, nondistended. EXTREMITIES: No cyanosis. GENITOURINARY AND RECTAL: Deferred. LABORATORY DATA: Blood cultures sterile thus far. TSH 1.503. Electrolytes: Sodium 139, potassium 4.0, chloride 107, bicarbonate is 20, anion gap of 12, BUN and creatinine 12 and 0.8, estimated GFR of 71. CBC: White count 4.1, H and H 11.0 and 33.8, platelets of 408. Coronavirus PCR was positive. Urinalysis; 6-15 white cells, greater than 30 bacteria. Lactic acid of 1.2. CRP elevated at 106.9. Chest x-ray; moderate cardiomegaly, multifocal mixed infiltrates. ASSESSMENT AND PLAN: COVID-19 infection, complicated by pneumonitis and respiratory failure, would be concerned about possible secondary bacterial pneumonitis. We will adjust therapy likely given the poor p.o. intake, concerned about complicated urinary tract infection as well, should covered gram negatives. Given the prolonged positivity at this point, I do not think she is likely to benefit from remdesivir and see how she does clinically. We will do additional inflammatory markers and add multivitamin. <ELECTRONICALLY SIGNED> By: Madhu Zambrano MD 01/29/20 1200 1320 0047 Madhu Zambrano MD /nt
[2020-01-29 14:32] VITALS: BP 122/64
[2020-01-29 14:42] VITALS: BP 137/61
--- NOTE | 2020-01-29 16:13 | NUR ---
PT ARRIVED ON THE UNIT AT 1500, VSS, AOX4. PT DENIES PAIN, UP AD MAUDE TO BSC, NO EDEMA OR SKIN BREAKDOWN NOTED. IV IN RIGHT AC, TOLERATING DIET WELL. PT HAS 2L O2 FOR COMFORT, SOA ON EXCERTION, SATS 98% ON RA. NURSE EDUCATED TO USE CALL LIGHT. WILL CONTINUE TO MONITOR FOR SAFETY.
[2020-01-29 19:52] VITALS: BP 115/94
[2020-01-30 04:29] VITALS: BP 109/52
--- NOTE | 2020-01-30 06:24 | NUR ---
FOLLOWING POC WITH IVPB. PT UP TO BATHROOM AD MAUDE. NO COMPLAINTS OVERNIGHT. MRSA SWAB COLLECTED. ISOLATION PRECAUTIONS IN PLACE. MEDS GIVEN PER EMAR.
[2020-01-30 07:34] VITALS: BP 143/72
[2020-01-30 12:24] VITALS: BP 100/51
--- NOTE | 2020-01-30 12:48 | NUR ---
INITIAL ASSESSMENT: SW reviewed chart and spoke with nursing and attending physician. Pt was admitted from home due to COVID-19. Pt placed in Enhanced Isolation. Pt had first positive COVID test on 01/13. Pt's test on 01/26 was positive. Pt is afebrile and on 2L of O2. Pt is on IV abx. SW spoke with pt via phone. Introduced role of SW. Pt is alert/orientated x 4. Pt reports she lives at home alone. Prior to admission, pt was independent with ADLs. No use of DME. No stairs into her house or inside her house. Pt has used [facility] in the past. No hx of post-acute placement. Pt's PCP is Dr. Aidan Tong. Pt's family is supportive and involved in her care. Plan is for pt to discharge home when medically stable. SW is following to assist as needed with discharge planning.
[2020-01-30 17:00] VITALS: BP 107/44
--- NOTE | 2020-01-30 18:18 | NUR ---
RN ASSUMED PT'S CARE AT 0700AM, PT IS A&OX3, PT IS ON O2 2L/MIN/NC TO KEEP O2SAT 94-98%, PT'S VS ARE STABLE, PT GETS UP TO BATH ROOM BY HERSELF,PT IS CONTINUING IV ABX, PT DOES NOT HAVE SOB AND FEVER, BUT PT STILL HAVE COUGHTING.
[2020-01-30 21:25] VITALS: BP 116/58
[2020-01-31 05:00] VITALS: BP 100/39
[2020-01-31 06:05] LABS: ALBUMIN 2.6 g/dL (3.4-5.0); CALCIUM 9.7 mg/dL (8.5-10.1); CREATININE 1.1 mg/dL (0.6-1.0); PHOSPHORUS 3.7 mg/dL (2.5-4.9); POTASSIUM 3.5 mmol/L (3.5-5.1)
[2020-01-31 07:05] VITALS: BP 108/52
[2020-01-31 11:12] VITALS: BP 116/66
--- NOTE | 2020-01-31 13:37 | NUR ---
QUINN reviewed chart and spoke with nursing and attending physician. Pt remains in Enhanced Isolation due to COVID-19. Pt is afebrile and on 2L of O2. Pt is on IV abx. Rest/exercise oximetry completed this afternoon. Pt does not qualify for home O2. Possible weekend discharge. QUINN received call from pt's dtr-in-law, Evelin, to discuss discharge plan. SW discussed that therapy has discharged pt and that HH can be arranged for pt if she is agreeable. Pt's dtr-in-law states she spoke with the ID physician earlier today regarding isolation precautions when pt returns home. Pt's family will be able to check on pt frequently, but will not be staying with her in her home. Pt's dtr-in-law to discuss HH or possible SNF options with pt. Pt will most likely not be agreeable with SNF placement. QUINN placed call to pt's room. No answer. Will continue to follow for discharge planning.
[2020-01-31 15:17] VITALS: BP 107/57
--- NOTE | 2020-01-31 18:21 | NUR ---
PATIENT TOLERATED ON RA. UP AD MAUDE. SLOWLY TOWARDS POC GOALS.
[2020-01-31 19:58] VITALS: BP 115/56
[2020-02-01 04:20] VITALS: BP 115/58
--- NOTE | 2020-02-01 05:01 | NUR ---
PT MAKING PROGRESS TOWARDS GOALS. UPON INITIAL ASSESSMENT PT NOTED TO HAVE SOME FINE CRACKLES AUSCULTATED OVER BOTH LOWER LOBES. THIS AM, ONLY NOTED TO HAVE CRACKLES OVER RLL. DENIES ANY SOA AT REST AND ONLY MILD SOA AFTER ACTIVITY. CONTINUE TO MONITOR.
[2020-02-01 07:29] VITALS: BP 128/52
[2020-02-01] MEDS ORDERED: PACERONE 200 M200 M1 PO (08:50)
[2020-02-01] MEDS ORDERED: CEFDINIR300 MG PO (08:50)
[2020-02-01] MEDS ORDERED: PREDNISONE 20 M20 M1 PO (08:51)
[2020-02-01 09:44] VITALS: BP 128/52
[2020-02-01 12:03] VITALS: BP 131/61
== END 2020-02-01 13:17 | disposition home health service (06) | DRG 177 ==
LOC: ER 18:32 → EROBS 20:34 → 3W 20:34 → EROBS 01-28 00:03 → 3W 01-29 14:55
PROVIDERS: Emergency Medicine; Nurse Practitioner Family; ADMIT Hospitalist; ATTEND Hospitalist
DX: U07.1 COVID-19 (principal); J96.01 Acute respiratory failure with hypoxia; J12.89 Other viral pneumonia; N39.0 Urinary tract infection, site not specified; I48.91 Unspecified atrial fibrillation; E03.9 Hypothyroidism, unspecified; K21.9 Gastro-esophageal reflux disease without esophagitis; Z96.653 Presence of artificial knee joint, bilateral; I10 Essential (primary) hypertension; R53.81 Other malaise; E78.5 Hyperlipidemia, unspecified; I67.1 Cerebral aneurysm, nonruptured; I25.10 Atherosclerotic heart disease of native coronary artery without angina pectoris; G47.33 Obstructive sleep apnea (adult) (pediatric); Z79.01 Long term (current) use of anticoagulants; Z90.710 Acquired absence of both cervix and uterus; Z95.5 Presence of coronary angioplasty implant and graft; Z95.1 Presence of aortocoronary bypass graft; Z90.49 Acquired absence of other specified parts of digestive tract; Z87.891 Personal history of nicotine dependence; Z88.8 Allergy status to other drugs, medicaments and biological substances; Z28.21 Immunization not carried out because of patient refusal
CPT/HCPCS: 10879

== ENCOUNTER → 2020-02-12 | Outpatient (CLI) | payer OTHER ==
[~2020-02-12] MED LIST changes: +ASPIRIN EC81 M1 PO; +CEFDINIR300 MG PO; +LEVSIN0.125 MG PO; +PACERONE 200 M200 M1 PO; +PACERONE200 MG PO; +PREDNISONE 20 M20 M1 PO; +VITAMIN D325 MC3 PO; +XARELTO20 MG PO
== END ==
LOC: BC
PROVIDERS: ATTEND Specialist
DX: D24.2 Benign neoplasm of left breast (principal)

== ENCOUNTER → 2020-04-13 | Outpatient (CLI) | payer OTHER | LOC: SJCVC 10:35 | PROVIDERS: ATTEND Internal Medicine Cardiovascular Disease | DX: I25.810 Atherosclerosis of coronary artery bypass graft(s) without angina pectoris (principal); I10 Essential (primary) hypertension; E78.00 Pure hypercholesterolemia, unspecified; I65.23 Occlusion and stenosis of bilateral carotid arteries; G47.33 Obstructive sleep apnea (adult) (pediatric); R06.00 Dyspnea, unspecified; G93.3 Postviral and related fatigue syndromes; K21.9 Gastro-esophageal reflux disease without esophagitis; E78.5 Hyperlipidemia, unspecified; E03.9 Hypothyroidism, unspecified; F41.9 Anxiety disorder, unspecified; Z79.899 Other long term (current) drug therapy; Z79.82 Long term (current) use of aspirin; Z87.891 Personal history of nicotine dependence; Z86.16 Personal history of COVID-19; Z95.1 Presence of aortocoronary bypass graft ==

== ENCOUNTER 2020-06-27 20:41 | Emergency (ER) | payer OTHER ==
[~2020-06-27] VITALS: Ht 160 cm; Wt 90.7 kg
[2020-06-27 20:43] VITALS: BP 183/76
== END 2020-06-27 21:16 | disposition home or self-care (01) ==
LOC: ER 20:41
DX: K13.0 Diseases of lips (principal); E78.5 Hyperlipidemia, unspecified; E03.9 Hypothyroidism, unspecified; Z79.01 Long term (current) use of anticoagulants; Z87.891 Personal history of nicotine dependence; Z79.899 Other long term (current) drug therapy; Z79.82 Long term (current) use of aspirin; Z90.710 Acquired absence of both cervix and uterus; Z90.49 Acquired absence of other specified parts of digestive tract; Z96.653 Presence of artificial knee joint, bilateral

== ENCOUNTER → 2020-07-13 | Outpatient (CLI) | payer OTHER | LOC: SJCVCIMAG 09:19 | PROVIDERS: ATTEND Internal Medicine Cardiovascular Disease | DX: R94.31 Abnormal electrocardiogram [ECG] [EKG] (principal); I08.3 Combined rheumatic disorders of mitral, aortic and tricuspid valves; I11.9 Hypertensive heart disease without heart failure; I48.91 Unspecified atrial fibrillation; R06.00 Dyspnea, unspecified; I25.810 Atherosclerosis of coronary artery bypass graft(s) without angina pectoris; I65.23 Occlusion and stenosis of bilateral carotid arteries; R00.1 Bradycardia, unspecified; I48.0 Paroxysmal atrial fibrillation; E78.00 Pure hypercholesterolemia, unspecified; K21.9 Gastro-esophageal reflux disease without esophagitis; E78.5 Hyperlipidemia, unspecified; E03.9 Hypothyroidism, unspecified; F41.9 Anxiety disorder, unspecified; Z95.1 Presence of aortocoronary bypass graft; Z86.16 Personal history of COVID-19; Z79.82 Long term (current) use of aspirin; Z79.899 Other long term (current) drug therapy; Z87.891 Personal history of nicotine dependence; Z72.89 Other problems related to lifestyle ==

== ENCOUNTER → 2021-02-16 | Outpatient (CLI) | payer OTHER | LOC: SJCVC 09:40 | PROVIDERS: ATTEND Internal Medicine Cardiovascular Disease | DX: I25.10 Atherosclerotic heart disease of native coronary artery without angina pectoris (principal); I48.0 Paroxysmal atrial fibrillation; I10 Essential (primary) hypertension; E78.00 Pure hypercholesterolemia, unspecified; I77.9 Disorder of arteries and arterioles, unspecified; E78.5 Hyperlipidemia, unspecified; E03.9 Hypothyroidism, unspecified; G47.30 Sleep apnea, unspecified; K21.9 Gastro-esophageal reflux disease without esophagitis; Z95.1 Presence of aortocoronary bypass graft; Z82.49 Family history of ischemic heart disease and other diseases of the circulatory system; F17.210 Nicotine dependence, cigarettes, uncomplicated; Z72.89 Other problems related to lifestyle; Z88.8 Allergy status to other drugs, medicaments and biological substances; Z79.899 Other long term (current) drug therapy ==

== ENCOUNTER → 2021-02-20 | Outpatient (CLI) | payer OTHER | LOC: BC 08:33 | PROVIDERS: ATTEND Family Medicine | DX: Z12.31 Encounter for screening mammogram for malignant neoplasm of breast (principal); N64.89 Other specified disorders of breast ==

== ENCOUNTER → 2021-03-02 | Outpatient (CLI) | payer OTHER | LOC: MRI 12:12 | PROVIDERS: ATTEND Specialist | DX: M47.816 Spondylosis without myelopathy or radiculopathy, lumbar region (principal); M51.26 Other intervertebral disc displacement, lumbar region; M48.061 Spinal stenosis, lumbar region without neurogenic claudication ==